=== PATIENT | male | born 1965 | race Caucasian/White ===

== ENCOUNTER → 2017-05-29 | Outpatient (CLI) | payer OTHER ==
[~2017-05-29] MED LIST: ASPI81TA28 PO; BLOOD PRESSURE PO; GADAVIST IV PRN
--- NOTE | 2017-05-29 14:47 | DIAGNOSTIC IMAGING REPORT ---
MRI CERVICAL SPINE COMBO CLINICAL HISTORY: CERVICAL MYELOPATHY LEFT SHOULDER NUMBNESS AND PAIN. TINGLING BOTH HANDS. TECHNIQUE: Sagittal and axial T1, T2 and STIR images were obtained. Images were acquired before and after the administration of 9.5 cc of intravenous Gadavist. COMPARISON STUDY: No previous studies for comparison. There are no suspicious areas of marrow replacement. No intrinsic cervical cord lesions are visualized. C2-3: There is no evidence of disc bulge or focal herniation. There is no spinal or foraminal stenosis. C3-4: There is a very small left paracentral disc protrusion. There is no significant spinal stenosis. There is mild bilateral foraminal narrowing. C4-5: There is a minor circumferential disc bulge. There is no significant spinal stenosis. There is mild bilateral foraminal narrowing. C5-6 :There is a small broad-based disc protrusion. There is mild spinal stenosis. There is mild bilateral foraminal narrowing. C6-7: There is a small central and slightly asymmetric to the left disc protrusion. In addition there is a right foraminal disc osteophyte complex. There is secondary spinal canal narrowing and bilateral foraminal narrowing. C7-T1: There is no evidence of disc bulge or focal herniation. There is no evidence of spinal or foraminal stenosis. Postcontrast images reveal no pathologic cord enhancement. There is mild discogenic epidural enhancement at the C 6-7 level. IMPRESSION: 1. Multilevel spondylitic changes 2. At the C6-C7 level, there is a central disc protrusion slightly asymmetric to the left. In addition there is a right foraminal disc osteophyte complex. There is secondary spinal canal narrowing, slight deformity of the right anterior aspect of the spinal cord, and bilateral foraminal narrowing. 3. Small broad-based disc protrusion at the C5-C6 level with secondary mild spinal stenosis. Mild bilateral foraminal narrowing 4. Mild circumferential disc bulge at the C4-5 level. Mild bilateral foraminal narrowing 5. Mild bilateral foraminal narrowing at the C3-4 level. Tiny left paracentral disc protrusion. Electronically signed by: Nilay Mullins M.D. 05/29/2017 2:45 PM Dictated Date/Time: 05/29/2017 2:35 PM
== END | disposition home or self-care (01) ==
LOC: C.MRI 13:35
PROVIDERS: ATTEND Family Medicine
DX: M47.12 Other spondylosis with myelopathy, cervical region (principal); M50.20 Other cervical disc displacement, unspecified cervical region

== ENCOUNTER 2017-07-22 05:44 | Day surgery (SDC) | payer OTHER ==
--- NOTE | 2017-07-09 15:43 | PAT Medication Instructions ---
Service Date July 09, 2017. Current Home Medication List Aspirin (Aspirin Ec), 81 MG PO HS Cephalexin Monohydrate (Keflex), 500 MG PO QAM Diclofenac (Voltaren), 75 MG PO BID PRN for RN Gabapentin (Neurontin), 300 MG PO HS PRN for RN Ibuprofen (Advil), 400 MG PO PRN Losartan Potassium (Cozaar), 50 MG PO QAM Medication Instructions For Your Scheduled Surgery -Check with the surgeon for instructions for: Diclofenac (Voltaren), 75 MG PO BID PRN for RN Ibuprofen (Advil), 400 MG PO PRN Aspirin (Aspirin Ec), 81 MG PO HS - Hold the following medications the morning of surgery: Losartan Potassium (Cozaar), 50 MG PO QAM - Take the following medications the morning of surgery with a sip of water: Cephalexin Monohydrate (Keflex), 500 MG PO QAM Gabapentin (Neurontin), 300 MG PO HS PRN for RN (if needed) - Take the following medications as scheduled the night before surgery: Gabapentin (Neurontin), 300 MG PO HS PRN for RN (if needed) If you have any questions please call us at [phone] or [phone] or [phone]
[2017-07-09 16:24] LABS: BASO % 0.2 %; BASO ABS # 0.01 K/uL (0-0.2); EOS ABS # 0.05 K/uL (0-0.5); HEMATOCRIT 41.5 % (42-52); HEMOGLOBIN 14.7 g/dL (14.0-18.0); IG# 0.01 K/uL (0.00-0.02); LYMPH % 29.3 %; LYMPH ABS # 1.46 K/uL (1.2-3.4); MEAN CELL VOLUME 93.9 fL (80-100); MEAN CORPUSCULAR HEMOGLOBIN 33.3 pg (25-34); MEAN CORPUSCULAR HGB CONC 35.4 g/dl (32-36); MEAN PLATELET VOLUME 10.1 fL (7.4-10.4); MONO % 8.8 %; MONO ABS # 0.44 K/uL (0.11-0.59); NEUT % 60.5 %; NEUT ABS # 3.02 K/uL (1.4-6.5); PLATELET COUNT 222 K/uL (130-400); RED CELL DISTRIBUTION WIDTH CV 13.3 % (11.5-14.5); RED CELL DISTRIBUTION WIDTH SD 45.6 fL (36.4-46.3); WHITE BLOOD COUNT 4.99 K/uL (4.8-10.8)
--- NOTE | 2017-07-09 16:31 | DIAGNOSTIC IMAGING REPORT ---
CHEST 2 VIEWS ROUTINE HISTORY: 51 years-old Male PAT preoperative exam. No acute chest complaints COMPARISON: None available TECHNIQUE: PA and lateral views of the chest FINDINGS: Cardiomediastinal and hilar silhouettes are within normal limits. Linear subsegmental left basilar opacities suggest atelectasis or scarring. There is mild hyperinflation with diaphragmatic flattening. There is no pneumothorax, pleural effusion or lobar airspace consolidation. Multilevel degenerative changes about the spine. The bones appear grossly intact. IMPRESSION: No acute process. The above report was generated using voice recognition software. It may contain grammatical, syntax or spelling errors. Electronically signed by: Bakari Gama M.D. 07/09/2017 4:29 PM Dictated Date/Time: 07/09/2017 4:28 PM
[2017-07-09 16:32] LABS: CALCIUM 8.6 mg/dl (8.5-10.1); CREATININE 1.21 mg/dl (0.60-1.40); POTASSIUM 4.4 mmol/L (3.5-5.1)
[~2017-07-22] VITALS: Ht 182.9 cm; Wt 99.5 kg
[2017-07-22] VITALS (16 sets, daily range): BP systolic 128–155; BP diastolic 76–90; PULSE 50–72; TEMP 36.2–36.9; O2SAT 93–97; Ht 182.9 cm; Wt 99.5 kg
[~2017-07-22 05:44] MED LIST changes: -BLOOD PRESSURE PO; +CEPH500C2 PO; +DICL-201 PO; +GABA-113 PO; -GADAVIST IV PRN; +IBUP-1050 PO; +LOSA50TA6 PO
[2017-07-22] MEDS ORDERED: CEFAZOLIN 2000MG IV PUSH 15 ML IV SCH (06:00)
[2017-07-22] MEDS ORDERED: CeleBREX 200 MG CAP PO SCH (06:00)
[2017-07-22] MEDS ORDERED: ACETAMINOPHEN 500 MG TAB PO SCH (06:00)
[2017-07-22] MEDS ORDERED: LACTATED RINGER'S 1000ML 1,000 ML IV SCH (06:00)
[2017-07-22] MEDS ORDERED: GABAPENTIN 900 MG PO SCH (06:00)
[2017-07-22] MEDS ORDERED: MIDAZOLAM HCL 1 MG/ML 2ML VIAL ONE (06:40)
[2017-07-22] MEDS ORDERED: FENTANYL CITRATE INJ 50 MCG/1 ML 2 ML VIAL ONE ×3 (06:40→08:24)
[2017-07-22] MEDS ORDERED: BACITRACIN 50000 UNIT VIAL ONE (06:47)
--- NOTE | 2017-07-22 07:30 | History and Physical ---
History & Physical Date July 22, 2017. Chief Complaint Neck and arm pain History of Present Illness The patient is a 51 year old male with complaints of neck and arm pain Past Medical/Surgical History Medical Problems: (1) HTN (hypertension) Additional History Hepatic Disease: No Endocrine Disorder: No Kidney Disease: No Hypertension: Yes Heart Disease: No Bleeding Tendencies: No Infectious Diseases: No Allergies Coded Allergies: Cat Dander (Verified Allergy, Unknown, CAT AND DOG DANDER-CONGESTION, STUFFY NOSE, 07/22/17) NO KNOWN DRUG ALLERGIES (Verified Allergy, Unknown, NONE, 07/22/17) POLLEN (Verified Allergy, Unknown, CONGESTION STUFFY, 07/22/17) Home Medications Scheduled Aspirin (Aspirin Ec), 81 MG PO HS Cephalexin Monohydrate (Keflex), 500 MG PO QAM Ibuprofen (Advil), 400 MG PO PRN Losartan Potassium (Cozaar), 50 MG PO QAM Scheduled PRN Diclofenac (Voltaren), 75 MG PO BID PRN for RN Gabapentin (Neurontin), 300 MG PO HS PRN for RN Physical Examination Skin: warm/dry, no rash Eyes: normal inspection, EOMI, sclerae normal ENT: normal ENT inspection, pharynx normal Head: normocephalic, atraumatic Neck: supple, no adenopathy, trachea midline Respiratory/Chest: lungs clear, normal breath sounds, no respiratory distress Cardiovascular: regular rate, rhythm, no edema, no murmur Abdomen / GI: normal bowel sounds, non tender Back: normal inspection Extremities: normal inspection, normal range of motion Neurologic/Psych: no motor/sensory deficits, alert, normal reflexes, oriented x 3 Diagnosis Cervical spinal stenosis Plan of Treatment C6 corpectomy
--- NOTE | 2017-07-22 07:30 | History & Physical Bridge Note ---
H&P Re-Evaluation Bridge Note: I have examined the patient, reviewed the History & Physical and in the interval since the performance of the History & Physical I have noted the following changes of clinical significance: No changes noted
[2017-07-22] MEDS ORDERED: HYDROmorphone INJ 1 MG/ML SYR IV PRN (07:45)
[2017-07-22] MEDS ORDERED: EpHEDrine SULFATE INJ 50 MG/ML AMP IV PRN (07:45)
[2017-07-22] MEDS ORDERED: FENTANYL CITRATE INJ 50 MCG/1 ML 2 ML VIAL IV PRN (07:45)
[2017-07-22] MEDS ORDERED: ATROPINE SULFATE 0.1 MG/ML 5ML SYR IV PRN (07:45)
[2017-07-22] MEDS ORDERED: ONDANSETRON INJ 2 MG/ML 2 ML VIAL IV PRN ×2 (07:45→09:45)
[2017-07-22] MEDS ORDERED: HYDROmorphone INJ 2 MG/ML SYR/VIAL ONE (08:10)
[2017-07-22] MEDS ORDERED: FLOSEAL HEMOSTATIC MATRIX 10ML TOP ONE (08:24)
[2017-07-22] MEDS ORDERED: LIDOCAINE HCL 2% 2 ML VIAL (20MG/ML) ONE ×2 (08:27)
[2017-07-22] MEDS ORDERED: PROPOFOL IV EMULSION 10 MG/ML 20 ML VIAL ONE (08:27)
[2017-07-22] MEDS ORDERED: DEXAMETHASONE SOD INJ 4 MG/ML VIAL ONE ×3 (08:27)
[2017-07-22] MEDS ORDERED: ROCURONIUM BROMIDE 10 MG/ML 5 ML VIAL ONE ×3 (08:28→09:30)
[2017-07-22] MEDS ORDERED: EpHEDrine SULFATE 50MG/5ML SYR ONE (09:31)
[2017-07-22] MEDS ORDERED: NEOSTIGMINE METHYLSULFATE 1 MG/ML 10ML VIAL ONE (09:31)
[2017-07-22] MEDS ORDERED: ONDANSETRON INJ 2 MG/ML 2 ML VIAL ONE (09:31)
[2017-07-22] MEDS ORDERED: GLYCOPYRROLATE INJ 0.2 MG/ML VIAL ONE (09:31)
--- NOTE | 2017-07-22 09:36 | [facility] Operative Report ---
Operative Report Operative Date July 22, 2017. Pre-Operative Diagnosis SPINAL STENOSIS Post-Operative Diagnosis SAME PREOP Procedure(s) Performed 1. Anterior cervical corpectomy C6. #2 anterior cervical arthrodesis C5-C7. #3 pacemaker peek cage 25 mm in height C5-C7. #4 placement of locally harvested morselized autograft combined with DBM in the interbody cage. #5 application of mitchell plate and screws C5-C7. Surgeon DR. Juan WALKER Beauty Culturist Surgeon(s) Dara RODRIGUEZ PAC Estimated Blood Loss 20ml Findings Severe spinal stenosis Specimens NONE Anesthesia Type General Description of Procedure Patient was met with preoperatively case discussed all questions addressed. After informed consent obtained patient was taken to the operative suite underwent intubation and placed in a supine position on the Reji table with the head [place] headholder. All bony prominences well-padded eyes inspected to ensure no external pressure placed upon the. This point the anterior cervical spine was prepped and draped in the normal sterile fashion. With the assistance of fluoroscopy identified the C6 vertebral body. A transverse incision was placed along the right anterior aspect of the cervical spine overlying this region. Sharp dissection with the assistance of bipolar electrocautery was performed down to and exposing the anterior cervical spine from C5 C7. A self retaining retractors placed. Then performed a complete discectomy of C5-6 up to the uncovertebral joints bilaterally followed by C6-7. [place] distractor pins were placed in C5 and C7 to distract across the C6 vertebral body. A complete corpectomy was then performed including removal of all posterior annular fibers longitudinal ligament and bilateral foraminotomies. Significant stenosis and foraminal disease was identified and addressed. Endplates were then burred to subcortical bleeding bone and a 25 mm peek cage filled with locally harvested autograft and DBM tapped in position. Distracting apparatus was removed. Mitchell plate and screws applied with the assistance of fluoroscopy. Incision was then copiously irrigated explored to ensure there is no damage to surrounding structures or remaining bleeding. 10 round PAULINE drain inserted. Incision was then closed with 2 Vicryl in the fascia and 4 Monocryl for fashion closure Steri-Strips sterile dressings placed. Patient weakened taken to PACU in stable condition. Please note Nadine Zhang was present throughout the entire procedure involved in patient positioning complex portions of the surgery and fashion closure. I attest to the content of the Intraoperative Record and any orders documented therein. Any exceptions are noted below.
[2017-07-22] MEDS ORDERED: RACEPINEPHRINE 2.25% NEBU SOLN 0.5 ML VIAL INH PRN (09:45)
[2017-07-22] MEDS ORDERED: DO NOT ADMINISTER PNEUMOCOCCAL VACCINE PRN (09:45)
[2017-07-22] MEDS ORDERED: DEXAMETHASONE INJ 8 MG in SYRINGE 0 ML IV PRN (09:45)
[2017-07-22] MEDS ORDERED: LORAZEPAM 0.5 MG TAB PO PRN (09:45)
[2017-07-22] MEDS ORDERED: NALOXONE HCL 0.4 MG/1 ML VIAL/CARP IV PRN (09:45)
[2017-07-22] MEDS ORDERED: DO NOT ADMINISTER FLU VACCINE PRN (09:45)
[2017-07-22] MEDS ORDERED: DiphenhydrAMINE HCL 50 MG/ML VIAL IV PRN (09:45)
[2017-07-22] MEDS ORDERED: ACETAMINOPHEN IV 1,000 MG in EMPTY BAG 0 ML IV PRN (09:45)
[2017-07-22] MEDS ORDERED: HYDROmorphone INJ 0.5 MG/0.5 ML SYR IV PRN (09:45)
[2017-07-22] MEDS ORDERED: MAGNESIUM HYDROXIDE SUSP 30 ML UDC PO PRN (09:45)
[2017-07-22] MEDS ORDERED: CEFAZOLIN IV 2,000 MG in DEXTROSE 5% 50ML 50 ML IV SCH (09:45)
[2017-07-22] MEDS ORDERED: LORAZEPAM INJ 0.5 MG in SYRINGE 0.75 ML IV PRN (09:45)
[2017-07-22] MEDS ORDERED: OXYCODONE HCL IR 5 MG TAB (IMMEDIATE RELEASE) PO PRN (09:45)
--- NOTE | 2017-07-22 10:05 | DIAGNOSTIC IMAGING REPORT ---
INTRAOPERATIVE CERVICAL SPINE 4 VIEWS CLINICAL HISTORY: C6 CORPECTOMY COMPARISON STUDY: No previous studies for comparison. FINDINGS: 16 seconds of fluoroscopic time was utilized. 4 intraoperative fluoroscopic spot images are provided for interpretation. Intraoperative radiographs demonstrate a C6 corpectomy. There is an anterior metallic plate with screws at the C5 and C7 levels. IMPRESSION: Intraoperative fluoroscopic spot images demonstrating a C6 corpectomy. Electronically signed by: Nilay Mullins M.D. 07/22/2017 10:04 AM Dictated Date/Time: 07/22/2017 10:03 AM
[2017-07-22] MEDS ORDERED: IV FLUIDS COMPLETED PRN (10:30)
--- NOTE | 2017-07-22 10:58 | Anesthesiology Progress Note ---
Anesthesia Post Op Note Date & Time July 22, 2017 at 10:57 Vital Signs Pain Intensity: 0 Vital Signs Past 12 Hours Date Time Temp Pulse Resp B/P (MAP) Pulse Ox O2 Delivery O2 Flow Rate FiO2 07/22/17 10:50 54 16 143/87 94 Nasal Cannula 4 07/22/17 10:40 57 14 142/91 95 Nasal Cannula 4 07/22/17 10:30 53 13 145/93 93 Nasal Cannula 4 07/22/17 10:20 54 13 145/89 94 Nasal Cannula 4 07/22/17 10:10 53 14 139/79 93 Oxymask 10 07/22/17 10:00 52 13 142/85 93 Oxymask 10 07/22/17 09:50 36.0 50 16 147/79 96 Oxymask 10 07/22/17 06:15 36.7 60 20 154/90 (111) 93 Room Air Notes Mental Status: alert / awake / arousable, participated in evaluation Pt Amnestic to Procedure: Yes Nausea / Vomiting: adequately controlled Pain: adequately controlled Airway Patency, RR, SpO2: stable & adequate BP & HR: stable & adequate Hydration State: stable & adequate Anesthetic Complications: no major complications apparent
[2017-07-22] MEDS ORDERED: LARYING-O-JET KIT (LTA) ONE (11:18)
[2017-07-22] MEDS ORDERED: SCOPOLAMINE 1.5 MG TDSY TD SCH (12:00)
[2017-07-22] MEDS ORDERED: RXC5 PO (12:50)
--- NOTE | 2017-07-22 12:51 | Discharge Instructions ---
Discharge Instructions Date of Service July 22, 2017. Admission Reason for Admission: Cervical Spinal Stenosis Discharge Discharge Diagnosis / Problem: cevical stenosis Discharge Goals Goal(s): Improve function Activity Recommendations Activity Limitations: per Instructions/Follow-up section . Instructions / Follow-Up Instructions / Follow-Up ACTIVITY RECOMMENDATIONS: SELF CARE INSTRUCTIONS AFTER CERVICAL FUSIONS 1. No smoking. Smoking drastically decreases the chance of a solid fusion. 2. No bending, lifting more than 5 pounds, or twisting (roll like a log when turning in bed). 3. You may shower 3 days after surgery. Thoroughly dry wound. Do not soak in the tub. 4. Cervical collar: Must be worn at all times including sleeping. You may remove the brace only to bath, eat and if you are sitting in a recliner. 5. Please walk as much as you can for exercise. Gradually increase the distance that you walk as your endurance increases. SPECIAL CARE INSTRUCTIONS: VERY IMPORTANT TO READ AND REVIEW A. Do not take any anti-inflammatory medications (i.e. Indocin, Advil, Aspirin, Naprosyn, Aleve, Motrin, etc.) as these may inhibit the chance of a solid fusion. Tylenol is okay to take. B. Your surgical incision has been closed with a cosmetic suture under the skin that will dissolve in about 6 weeks. In 14 days, you can use a pair of clean scissors and cut the suture that is left outside of the skin at the ends of your incision. C. Complications are uncommon, but please contact us if you have any signs or symptoms of: 1. wound infection (fever higher than 102.5 degrees F, redness, separation of wound, drainage, or increasing pain from the incision) 2. blood clots in legs (pain, swelling, redness and warmth in legs) 3. urinary tract infection (fever higher than 102.5 degrees, burning upon urination or increased frequency of urination) 4. nerve problems (inability to walk on your toes or heels, numbness, loss of bowel or bladder control) 5. any other symptoms that concern you. D. Please call the office at if you have any concerns or questions about your operation or recovery. MANAGING PAIN AFTER SPINAL SURGERY 1. Narcotic medication is intended for short-term use and will be provided for surgical pain. Surgical pain usually lasts for a period of 4-6 weeks. Narcotic medication includes Percocet, Vicodin, Darvocet, Tylenol #3 or Lortab. 2. Longer-term pain is more appropriately treated with non-narcotic medication such as Tylenol ES. 3. Muscle spasm is not appropriately treated with narcotics. Muscle relaxers such as Soma, Flexeril or Skelaxin can be used along with Tylenol ES. 4. Remember that we all live with some "aches and pains". This is not unusual or uncommon after an injury or as we get older. 5. We will provide appropriate medication within the normal guidelines of their prescribed use. We will also be very cautious and aware of potential abuse and extended duration of patients' medication needs. 6. Please allow 2-3 days to process refills. Prescriptions will not be mailed but must be picked up at the office. FOLLOW UP VISIT: Keep your scheduled follow-up appointment. Any questions, please call the office at . Current Hospital Diet Patient's current hospital diet: Clear Liquid Diet Discharge Diet Recommended Diet: Regular Diet Procedures Procedures Performed: 1. Anterior cervical corpectomy C6. #2 anterior cervical arthrodesis C5-C7. #3 pacemaker peek cage 25 mm in height C5-C7. #4 placement of locally harvested morselized autograft combined with DBM in the interbody cage. #5 application of gordon plate and screws C5-C7. Pending Studies Studies pending at discharge: no Medical Emergencies . Who to Call and When: Medical Emergencies: If at any time you feel your situation is an emergency, please call 911 immediately. . Non-Emergent Contact Non-Emergency issues call your: Primary Care Provider . "Provider Documentation" section prepared by Richard Biggs. .
[2017-07-22] MEDS: CHECK SCOPOLAMINE PATCH PLACEMENT SCH ×2 (15:30→23:17)
[2017-07-22] MEDS: CEFAZOLIN IV 2,000 MG in SYRINGE 0 ML IV SCH ×2 (16:17→23:23)
[2017-07-22] MEDS: SODIUM CHLORIDE 0.9% 1000ML 1,000 ML IV SCH (16:18)
[2017-07-22] MEDS: DOCUSATE SODIUM 100 MG CAP PO SCH (21:24)
[2017-07-23] VITALS (10 sets, daily range): BP systolic 120–136; BP diastolic 72–77; PULSE 48–61; TEMP 36.4–36.6; O2SAT 92–96
[2017-07-23] MEDS: SODIUM CHLORIDE 0.9% 1000ML 1,000 ML IV SCH (03:21)
[2017-07-23] MEDS ORDERED: ACETAMINOPHEN IV 100 ML IV PRN (07:15)
--- NOTE | 2017-07-23 07:55 | Anesthesiology Progress Note ---
Anesthesia Post Op Note Date & Time July 23, 2017 at 07:55 Vital Signs Pain Intensity: 4.0 Vital Signs Past 12 Hours Date Time Temp Pulse Resp B/P (MAP) Pulse Ox O2 Delivery O2 Flow Rate FiO2 07/23/17 07:31 49 14 95 Room Air 07/23/17 07:13 36.4 48 15 131/77 (95) 92 Room Air 07/23/17 07:06 36.6 50 16 126/74 95 Room Air 07/23/17 05:15 36.4 54 14 123/72 95 Nasal Cannula 2.0 Humidified Oxygen 07/23/17 03:25 55 14 95 Nasal Cannula 2.0 07/23/17 03:16 36.5 56 16 120/72 95 Nasal Cannula 2.0 Humidified Oxygen 07/23/17 01:00 36.6 61 16 127/75 96 Nasal Cannula 2.0 Humidified Oxygen 07/22/17 23:15 Nasal Cannula 2.0 Humidified Air 07/22/17 23:06 58 14 95 Nasal Cannula 2.0 07/22/17 23:02 36.7 65 16 138/82 97 Nasal Cannula 2.0 07/22/17 21:00 36.7 60 16 128/76 93 Nasal Cannula 2.0 Notes Mental Status: alert / awake / arousable, participated in evaluation Pt Amnestic to Procedure: Yes Nausea / Vomiting: adequately controlled Pain: adequately controlled Airway Patency, RR, SpO2: stable & adequate BP & HR: stable & adequate Hydration State: stable & adequate Anesthetic Complications: no major complications apparent
[2017-07-23] MEDS: CHECK SCOPOLAMINE PATCH PLACEMENT SCH (08:00)
[2017-07-23] MEDS: CEFAZOLIN IV 2,000 MG in SYRINGE 0 ML IV SCH (08:44)
[2017-07-23] MEDS: DOCUSATE SODIUM 100 MG CAP PO SCH (08:45)
--- NOTE | 2017-07-23 10:54 | Discharge Summary ---
Orthopedic Discharge Summary Admission Date/Reason July 22, 2017 at 09:39 Cervical Spinal Stenosis. Discharge Date/Disposition July 23, 2017 Home Diagnosis Principal Diagnosis: Cervical spinal stenosis with myeloradiculopathy Admission Physical Exam As per Admitting History & Physical. Hospital Course Patient underwent anterior cervical corpectomy and fusion C6 tolerated as well as taken to the orthopedic floor postoperatively. Postop day #1 arm symptoms were markedly improved. Neck pain controlled. No hoarseness. Swallowing without difficulty. Subsequently discharged home. Discharge orders and instructions can be found in the chart for further review. Discharge Instructions Please refer to the electronic Patient Visit Report (Discharge Instructions) for additional information.
[2017-07-24] MEDS ORDERED: BISACODYL 10 MG SUPP PR PRN (06:00)
[2017-07-24] MEDS ORDERED: BISACODYL 5 MG TABEC PO PRN (06:00)
[2017-07-24] MEDS ORDERED: POLYETHYLENE (MIRALAX) 17 GM PACK PO SCH (09:00)
== END 2017-07-23 11:29 | disposition home or self-care (01) ==
LOC: C.ACU 05:44 → C.3E 09:39 → ENRESERV 10:36
PROVIDERS: ADMIT Orthopaedic Surgery Orthopaedic Surgery of the Spine; ATTEND Orthopaedic Surgery Orthopaedic Surgery of the Spine
DX: M48.02 Spinal stenosis, cervical region (principal); M54.12 Radiculopathy, cervical region; I10 Essential (primary) hypertension; Z79.82 Long term (current) use of aspirin